=== PATIENT | female | born 1985 | race Caucasian/White ===

== ENCOUNTER 2019-08-16 17:05 | Outpatient (CLI) | payer MEDICAID, OTHER ==
[~2019-08-16] VITALS: Ht 167.7 cm; Wt 65.8 kg
--- NOTE | 2019-08-16 17:05 | NUR ---
KENISHA CURRAN presented to unit via ambulation from ED, accompanied by s/o, with c/o CONTRACTIONS. KENISHA CURRAN weighed, gowned, voided, and to bed. EFHM and TOCO applied, VS taken. KENISHA CURRAN oriented to bed controls, call light, TV, heat, and A/C controls.
[2019-08-16] MEDS ORDERED: TERBUTALINE INJ 1 MG/ML (BRETHINE) AMP ONE (18:10)
[2019-08-16] MEDS ORDERED: TERBUTALINE INJ 1 MG/ML (BRETHINE) AMP SC ONE (18:30)
--- NOTE | 2019-08-16 19:20 | NUR ---
called with update. Discharge order received.
[2019-08-16] MEDS ORDERED: AZIT500T2 PO (19:34)
--- NOTE | 2019-08-16 19:40 | NUR ---
Discharge instructions verbalized with pt. pt verbalized understanding. pt discharged home with labor precautions.
--- NOTE | 2019-08-19 09:01 | Physician Query-Final Dx ---
JAMAAL WARE 08/19/19 0901: Clinic Account Progress/Dx Physician Query: Please give diagnosis Please include # weeks of gestation Date of Service Aug 16, 2019 at 17:05 OTILIO MIRANDA DO 08/20/19 0655: Clinic Account Progress/Dx DIAGNOSIS: Diagnosis Intrauterine at 34 weeks 2. Threatened Labor 3. Pelvic Pain 4. UTI JAMAAL WARE Aug 19, 2019 09:01 OTILIO MIRANDA DO Aug 20, 2019 06:55
== END 2019-08-16 19:40 | disposition home or self-care (01) ==
LOC: WSo 17:05 → LDRP 17:05 → WSo 19:40
PROVIDERS: ATTEND Obstetrics & Gynecology
DX: O60.03 Preterm labor without delivery, third trimester (principal); O23.43 Unspecified infection of urinary tract in pregnancy, third trimester; Z3A.34 34 weeks gestation of pregnancy
CPT/HCPCS: 96372; 99213

== ENCOUNTER 2019-09-16 11:28 | Outpatient (CLI) | payer MEDICAID ==
[~2019-09-16] VITALS: Ht 167.7 cm; Wt 67.1 kg
--- NOTE | 2019-09-16 11:20 | NUR ---
KENISHA CURRAN presented to unit via ambulation from home, accompanied by mother and toddler, with c/o BACK PAIN,CONTRACTIONS. KENISHA CURRAN weighed, gowned, voided, and to bed. EFHM and TOCO applied, VS taken. KENISHA CURRAN oriented to bed controls, call light, TV, heat, and A/C controls.
[~2019-09-16 11:28] MED LIST: AZIT500T2 PO
[2019-09-16 11:51] LABS: BILIRUBIN,URINE NEGATIVE (NEGATIVE); CLARITY,URINE CLEAR; COLOR,URINE YELLOW; GLUCOSE, URINE (UA) NEGATIVE (NEGATIVE); KETONES,URINE NEGATIVE (NEGATIVE); LEUKOCYTE ESTERASE ,URINE NEGATIVE (NEGATIVE); NITRITE,URINE NEGATIVE (NEGATIVE); PH,URINE 7 (5-9); PROTEIN,URINE NEGATIVE (NEGATIVE)
[2019-09-16 11:56] VITALS: BP 113/65
[2019-09-16 12:02] LABS: BACTERIA,URINE NEGATIVE /HPF; WBC,URINE RARE /HPF
--- NOTE | 2019-09-16 13:05 | NUR ---
dr mccormack notified of patient status and c/o, fhr pattern contraction pattern, and cervical exam. new orders received.
--- NOTE | 2019-09-16 13:25 | NUR ---
sve by this Rn no leaking or bleeding. no change from previous exam.
--- NOTE | 2019-09-16 13:30 | NUR ---
ambulated to home self care with mother and toddler. with precautions to return with any changes. d/c instructions in hand.
--- NOTE | 2019-09-17 08:30 | Physician Query-Final Dx ---
JAMAAL WARE 09/17/19 0830: Clinic Account Progress/Dx Physician Query: Please give diagnosis Please include # weeks gestation Date of Service Sep 16, 2019 at 11:28 OTILIO MIRANDA DO 09/30/19 0720: Clinic Account Progress/Dx Physician Query: Please give diagnosis (Intrauterine at 38 weeks 2. Contractions 3. Back Pain) Date of Service September 16, 2019 DIAGNOSIS: Diagnosis Intrauterine at 38 weeks 2. Contractions 3. Back Pain JAMAAL WARE Sep 17, 2019 08:30 OTILIO CORDOVA DO Sep 30, 2019 07:20 POS
== END 2019-09-16 13:30 ==
LOC: WSo 11:28 → LDRP 11:29 → WSo 13:30
PROVIDERS: ATTEND Obstetrics & Gynecology
DX: O62.9 Abnormality of forces of labor, unspecified (principal); O26.893 Other specified pregnancy related conditions, third trimester; M54.9 Dorsalgia, unspecified; Z3A.38 38 weeks gestation of pregnancy
CPT/HCPCS: 81000; 87088; 99213

== ENCOUNTER 2019-09-18 05:33 | Outpatient (CLI) | payer MEDICAID ==
[~2019-09-18] VITALS: Ht 167 cm; Wt 65.9 kg
== END 2019-09-18 15:35 | disposition home or self-care (01) ==
LOC: PREOP 05:33
PROVIDERS: ATTEND Obstetrics & Gynecology
DX: Z01.818 Encounter for other preprocedural examination (principal)

== ENCOUNTER 2019-09-23 05:54 | Inpatient (IN) | payer MEDICAID ==
[~2019-09-23] VITALS: Ht 167 cm; Wt 64.0 kg
[2019-09-23] VITALS (11 sets, daily range): BP systolic 94–123; BP diastolic 58–82
[~2019-09-23 05:54] MED LIST changes: +CITRIC ACID/SOB CIT (BICITRA) 30 ML UDC ONE; +FAMOTIDINE 20MG/2ML IV (PEPCID) ONE; +LACTATED RINGERS 1,000 ML IV ONE; +METOCLOPRAMIDE INJ 10 MG/2 ML (REGLAN) ONE
--- NOTE | 2019-09-23 06:00 | NUR ---
KENISHA CURRAN presented to unit via AMBULATORY from ED, accompanied by FAMILY, with c/o PREVIOUS C/S . KENISHA CURRAN weighed, gowned, voided, and to bed. EFHM and TOCO applied, VS taken. KENISHA CURRAN oriented to bed controls, call light, TV, heat, and A/C controls.
[2019-09-23] MEDS ORDERED: LACTATED RINGERS 1,000 ML IV SCH (06:02)
[2019-09-23] MEDS ORDERED: FAMOTIDINE 20MG/2ML IV (PEPCID) IV ONE (06:15)
[2019-09-23] MEDS ORDERED: METOCLOPRAMIDE INJ 10 MG/2 ML (REGLAN) IV ONE (06:15)
[2019-09-23] MEDS ORDERED: CITRIC ACID/SOB CIT (BICITRA) 30 ML UDC PO ONE (06:15)
[2019-09-23] MEDS ORDERED: ceFAZolin 2 GM IV Premixed 50 ML IV ONE (06:15)
[2019-09-23] MEDS: LACTATED RINGERS 1,000 ML IV SCH ×3 (06:26→07:47)
[2019-09-23 06:31] LABS: BASOPHILS % (AUTO) 0 % (0-10); EOSINOPHILS # (AUTO) 0.1 10^3/uL (0.0-0.3); EOSINOPHILS % (AUTO) 1 % (0-10); HEMATOCRIT 38 % (35-52); LYMPHOCYTES # (AUTO) 1.6 X 10^3 (1.0-4.0); LYMPHOCYTES % (AUTO) 16 % (12-44); MEAN CORPUSCULAR HEMOGLOBIN 29 PG (25-34); MEAN CORPUSCULAR HGB CONC 34 G/DL (32-36); MEAN CORPUSCULAR VOLUME 85 FL (80-99); MEAN PLATELET VOLUME 11.3 FL (7.4-10.4); MONOCYTES # (AUTO) 0.9 X 10^3 (0.0-1.0); MONOCYTES % (AUTO) 9 % (0-12); NEUTROPHILS # (AUTO) 7.5 X 10^3 (1.8-7.8); NEUTROPHILS % (AUTO) 75 % (42-75); PLATELET COUNT 144 10^3/uL (130-400); RED CELL DISTRIBUTION WIDTH 14.6 % (10.0-14.5)
--- NOTE | 2019-09-23 06:56 | History & Physical-OB ---
OB - Chief Complaint & HPI Date/Time Date of Admission: Date of Admission: Sep 23, 2019 at 05:54 Date seen by a Provider: Sep 23, 2019 Time Seen by a Provider: 06:45 Chief Complaint/History OB-Reason for Admission/Chief: Section Expected Date of Delivery: Sep 29, 2019 Gestational Age in Weeks: 39 Gestational Age in Days: 1 Indication for : desires repeat Admission Nurse Assessment Rev: Yes Allergies and Home Medications Allergies Coded Allergies: latex (Verified Allergy, Mild, RASH/SWELLING, 09/18/19) morphine (Verified Allergy, Mild, RASH, 09/18/19) Home Medications No Active Prescriptions or Reported Meds Patient Home Medication List Home Medication List Reviewed: Yes OB - History Hx of Present Care: Yes Ultrasounds: Normal mid trimester US Obstetrical Complications: None Medical Complications: Cardiovascular Delivery History Adverse Rxn to Tranfusion: No (N/A) Patient Past Medical History See chart Social History/Family History HIV/AIDS: No Recent Infectious Disease Expo: No Sexually Transmitted Disease: No Alcohol Use: Denies Use Recreational Drug Use: No 2nd Hand Smoke Exposure: Yes OB - Admission Exam Physical Exam Vitals: Vital Signs 09/23/19 06:26 Temp 36.4 Pulse 82 Resp 18 Pulse Ox 99 O2 Delivery Room Air HEENT: NCAT Heart: Rhythm Normal Lungs: Clear Abdomen: Gravid Extremities: Normal Reflexes: Normal Cervical Dilatation: other (Deferred) Heart Rate: 130's Accelerations: Accelerations Present Decelerations: No Decelerations Short Term Variability: Present Crosscutter Rolled Glass Variability: Average (6-25) Contractions on Admission: 6-10 Minutes Apart Intensity: Mild Labs Laboratory Tests Test 09/23/19 06:20 Range/Units White Blood Count 10.0 4.3-11.0 10^3/uL Red Blood Count 4.50 4.35-5.85 10^6/uL Hemoglobin 13.0 11.5-16.0 G/DL Hematocrit 38 35-52 % Mean Corpuscular Volume 85 80-99 FL Mean Corpuscular Hemoglobin 29 25-34 PG Mean Corpuscular Hemoglobin Concent 34 32-36 G/DL Red Cell Distribution Width 14.6 H 10.0-14.5 % Platelet Count 144 130-400 10^3/uL Mean Platelet Volume 11.3 H 7.4-10.4 FL Neutrophils (%) (Auto) 75 42-75 % Lymphocytes (%) (Auto) 16 12-44 % Monocytes (%) (Auto) 9 0-12 % Eosinophils (%) (Auto) 1 0-10 % Basophils (%) (Auto) 0 0-10 % Neutrophils # (Auto) 7.5 1.8-7.8 X 10^3 Lymphocytes # (Auto) 1.6 1.0-4.0 X 10^3 Monocytes # (Auto) 0.9 0.0-1.0 X 10^3 Eosinophils # (Auto) 0.1 0.0-0.3 10^3/uL Basophils # (Auto) 0.0 0.0-0.1 10^3/uL OB - Assessment/Plan/Diagnosis Assessment Assessment: section Admission Dx Intrauterine at 39 1/7 weeks 2. Previous Admission Status: Inpatient Order (span 2 midnights) Reason for Inpatient Admission: Intrauterine at 39 1/7 2. Previous Plan Plan: Section OTILIO MIRANDA DO Sep 23, 2019 06:56
[2019-09-23] MEDS ORDERED: OXYTOCIN/NORMAL SALINE 1,000 ML IV ONE (07:03)
[2019-09-23] MEDS ORDERED: fentaNYL INJECTION 100 MCG/2 ML AMP ONE (07:04)
[2019-09-23] MEDS ORDERED: PHENYLEPHRINE 100 MCG/ML 10 ML (ANESTHESIA) SYR ONE (07:22)
[2019-09-23] MEDS ORDERED: BUPIVACAINE 0.5% 30 ML (SENSORCAINE) VIAL ONE (07:43)
[2019-09-23] MEDS ORDERED: OXYTOCIN/NORMAL SALINE 500 ML IV SCH (08:46)
[2019-09-23] MEDS ORDERED: TETANUS,DIPTH,PERTUSS P/F (BOOSTRIX) 0.5 ML VIAL IM SCH (09:00)
[2019-09-23] MEDS ORDERED: MEASLES,MUMPS,RUBELLA 1 EA INJ SC SCH (09:00)
[2019-09-23] MEDS ORDERED: ONDANSETRON 4 MG/2 ML (SDV) Z0FRAN IVP PRN (09:00)
--- NOTE | 2019-09-23 09:07 | Operative Report ---
Operative Report Date of Procedure/Surgery Sep 23, 2019 Surgeon (s) OTILIO MIRANDA DO Beater Tender (s): None Post-Operative Diagnosis Intrauterine at 39 1/7 weeks 2. Previous Procedure Performed Repeat Description of Procedure Anesthesia Type: Spinal Estimated blood loss (mL): 500 ml Urinary Output 75 ml IV fluids 1200 ml Specimen(s) collected/removed Placenta and old scar Description of the Procedure Ms. Bai was taken to the Operating Room with IV fluids running. Once in the OR Spinal Anesthesia was administered without difficulty. She was then place in the supine position with a leftward tilt. A Elder Catheter was inserted. She was then prepped and draped in the normal sterile fashion. Anesthesia was tested and found to be adequate. An elliptical incision was made over her previous incision with the old incision being removed. The incision was then carried down to the underling layer of the fascia. The fascia was nicked in the midline and extended bilaterally. The fascia was elevated and rectus muscle dissected off. The rectus muscle was in the midline. The peritoneum was identified, entered sharply, the incision was extended superiorly and inferiorly with good visualization of the bladder. The vesicouterine peritoneum was entered sharply, extended bilaterally. The bladder flap was created digitally and the bladder blade was inserted. It should be noted that the lower uterine segment was very thin--so thin I could see through it. A transverse icisin was made on the lower uterine segment. The membranes were ruptured (clear fluid). The vertex was delivered atraumatically. Orally and nasally suctioned immediately. A viable female infant was delivered without complications. The umbilical cord was doubly clamped and cut. The was handed off to the waiting Pediatric Caregiver where NRP protocol was followed. Cord blood was obtained. The placenta was manually extracted. The uterus was exteriorized, cleared of clots and debris. The uterus was repaired with 0- Vicryl in a running locked fashion. A second suture of the same type was placed as an imbricating layer. The vesicouterine peritoneum was approximated with 3-0 Vicryl in a running fashion. The uterus was returned to the pelvic cavity. The gutters were cleared of all clots and debris. The parietal peritoneum was closed with 3-0 Vicryl in a running fashion. The fascia was closed with 0-Vicry l. The subcutaneous tissues were approximated with 3-0 Plain Gut. The skin was closed with 4-0 Vicryl in a subcuticular manner. Excellent alevism of normal skin planes. Sponge, instrument, and needle counts were correct x 3. She was taken to the Recovery Room in good and stable condition. Findings of the Procedure A viable female in the cephalic presentation Allergies and Home Medications Allergies Coded Allergies: latex (Verified Allergy, Mild, RASH/SWELLING, 09/18/19) morphine (Verified Allergy, Mild, RASH, 09/18/19) Home Medications No Active Prescriptions or Reported Meds Patient Home Medication List Home Medication List Reviewed: Yes OTILIO MIRANDA DO Sep 23, 2019 09:07
--- NOTE | 2019-09-23 09:20 | NUR ---
TRANSFERRED TO PP ROOM 307 VIA PT BED FROM OB PACU ACC BY ONEAL GARCIA AFTER A REPEAT SECTION BY DR. MIRANDA. BED TO LOW POSITION. SIDE RAILS UP X4. ORIENTED TO SURROUNDINGS. CALF SCDS ON BILATERALLY. PT RECEIVED BY Adrien MOTTA RN. S.O. PUSHING INFANT IN CRIB. FAMILY IN ROOM. FF U/1. VAG FLOW MOD RUBRA. IV PATENT SITE CLEAR. ORIENTED TO CALL LIGHT OPERATION, INFORMATION PAPERS, AND SURROUNDINGS.
--- NOTE | 2019-09-23 10:00 | NUR ---
IV PLACED ON PUMP WITH NEW TUBING.
--- NOTE | 2019-09-23 10:56 | NUR ---
OXYIR 5 MG P.O. FOR C/O INCISIONAL PAIN. ICE PACK TO ABDOMEN. FAMILY AT BEDSIDE.TAKING FLUIDS WELL. GONZALEZ PATENT TO DD WITH CLEAR YELLOW URINE. CARING FOR .
[2019-09-23] MEDS: METOCLOPRAMIDE 10 MG (REGLAN) TAB PO SCH ×3 (12:52→23:52)
[2019-09-23] MEDS: ACETAMINOPHEN 500 MG TAB (TYLENOL) PO SCH ×3 (12:53→23:31)
[2019-09-23] MEDS: fentaNYL INJECTION 100 MCG/2 ML AMP IVP PRN ×2 (12:53→18:01)
--- NOTE | 2019-09-23 12:53 | NUR ---
FENTANYL 50 MCG IVP FOR C/O INCISIONAL PAIN. TEARFUL. HOLDING . .
--- NOTE | 2019-09-23 14:00 | NUR ---
HOLDING . FAMILY AT BEDSIDE. RATES PAIN A 5 AT THIS TIME.
--- NOTE | 2019-09-23 14:40 | NUR ---
PT C/O NEED TO HAVE A BM. ASSISTED TO THE BATHROOM. LARGE BM. STATES THE CATHETER IS LEAKING AROUND ITSELF. CONFIRMED.
--- NOTE | 2019-09-23 14:45 | NUR ---
DR. MIRANDA NOTIFIED OF PT C/O WANTING GONZALEZ D/C'ED, URINE GOING AROUND BULB, AND LARGE BM. ORDERS RECEIVED.
--- NOTE | 2019-09-23 14:50 | NUR ---
GONZALEZ D/C'ED WITH 400 CC URINE IN THE BAG. BACK TO BED WITH ASSISTANCE. ICE PACK TO ABDOMEN. FAMILY AT BEDSIDE. REGULAR DIET ORDERED FOR PT.
--- NOTE | 2019-09-23 15:00 | NUR ---
OXYIR 5 MG P.O. FOR C/O INCISIONAL PAIN. PREPARING TO TRY TO FEED INFANT. REGULAR DIET ORDERED. FAMILY AT BEDSIDE. FF U/1. VAG FLOW LT RUBRA.
--- NOTE | 2019-09-23 16:15 | NUR ---
Up to BR voided 600ml of clear yellow urine. Pt ambulated well. Back to bed - SCD's reapplied.
[2019-09-23] MEDS ORDERED: IBUPROFEN 800 MG (MOTRIN) TAB PO ONE (17:35)
[2019-09-23] MEDS: IBUPROFEN 800 MG (MOTRIN) TAB PO SCH (18:00)
--- NOTE | 2019-09-23 18:01 | NUR ---
FENTANYL 50 MCG IVP FOR C/O INCISIONAL PAIN. PT HAS VOIDED WELL. AMBULATES WITHOUT DIFFICULTY WITH MINIMAL ASSISTANCE.
[2019-09-23] MEDS: DOCUSATE SODIUM 100 MG (COLACE) CAP PO SCH (19:56)
[2019-09-23] MEDS ORDERED: ZOLPIDEM 5 MG (AMBIEN) TAB PO SCH (21:00)
[2019-09-23] MEDS: CATHETER FLUSH 10 ML SYR IV SCH (21:15)
--- NOTE | 2019-09-23 22:00 | NUR ---
pt holding infant in arms at this time. denies needs.
--- NOTE | 2019-09-24 02:00 | NUR ---
pt sleeping at this time.
[2019-09-24] MEDS: IBUPROFEN 800 MG (MOTRIN) TAB PO SCH ×2 (02:45→12:03)
[2019-09-24 04:22] VITALS: BP 111/70
[2019-09-24] MEDS ORDERED: MILK OF MAGNESIA 400 MG/5 ML 30 ML UDC PO ONE (05:00)
[2019-09-24] MEDS ORDERED: BISACODYL 10 MG SUPP (DULCOLAX) PR ONE (05:00)
[2019-09-24] MEDS: ACETAMINOPHEN 500 MG TAB (TYLENOL) PO SCH ×2 (06:06→12:02)
[2019-09-24] MEDS: METOCLOPRAMIDE 10 MG (REGLAN) TAB PO SCH ×2 (06:06→12:02)
[2019-09-24] MEDS: CATHETER FLUSH 10 ML SYR IV SCH (06:08)
--- NOTE | 2019-09-24 06:11 | NUR ---
dr. mccormack here to round on pt now.
[2019-09-24 06:16] LABS: BASOPHILS % (AUTO) 0 % (0-10); EOSINOPHILS # (AUTO) 0.1 10^3/uL (0.0-0.3); EOSINOPHILS % (AUTO) 1 % (0-10); HEMATOCRIT 31 % (35-52); HEMOGLOBIN 10.4 G/DL (11.5-16.0); LYMPHOCYTES # (AUTO) 2.1 X 10^3 (1.0-4.0); LYMPHOCYTES % (AUTO) 22 % (12-44); MEAN CORPUSCULAR HEMOGLOBIN 29 PG (25-34); MEAN CORPUSCULAR HGB CONC 34 G/DL (32-36); MEAN CORPUSCULAR VOLUME 86 FL (80-99); MEAN PLATELET VOLUME 11.4 FL (7.4-10.4); MONOCYTES # (AUTO) 0.9 X 10^3 (0.0-1.0); MONOCYTES % (AUTO) 9 % (0-12); NEUTROPHILS # (AUTO) 6.4 X 10^3 (1.8-7.8); NEUTROPHILS % (AUTO) 68 % (42-75); PLATELET COUNT 110 10^3/uL (130-400); RED CELL DISTRIBUTION WIDTH 14.2 % (10.0-14.5); WHITE BLOOD COUNT 9.4 10^3/uL (4.3-11.0)
[2019-09-24] MEDS ORDERED: DOCU100C37 PO (06:38)
[2019-09-24] MEDS ORDERED: IBUP-1780 PO (06:38)
[2019-09-24] MEDS ORDERED: ACET-77 PO (06:38)
[2019-09-24] MEDS ORDERED: OXC5T PO (06:38)
--- NOTE | 2019-09-24 06:45 | Discharge Summary ---
Diagnosis/Chief Complaint Date of Admission Sep 23, 2019 at 05:54 Date of Discharge September 24, 2019 Discharge Date: Sep 24, 2019 Discharge Time: 09:00 Admission Diagnosis Admission Diagnosis Intrauterine at 39 1/7 weeks 2. Previous Discharge Diagnosis Intrauterine at 39 1/7 weeks--delivered 2. Previous Reason Hospital Visit Scheduled Repeat Discharge Summary Hospital Course Hospital Course Ms. Bai was admitted for Repeat . The procedure was performed without complications. A healthy viable female was delivered without problems. On the day of surgery, she was given IV pain medications and other comfort measures were instituted. Her day of surgery course was unremarkable. Postoperative Day #1 found Ms. Tinajero moving her bowels, voiding freely, ambulating without assist, tolerating a Regular Diet, and controlling her pain with oral pain medications We will discharge her to home with instructions,, prescriptions and a follow up appointment. Labs Laboratory Tests 09/23/19 06:20: Red Cell Distribution Width 14.6H, Mean Platelet Volume 11.3H 09/24/19 05:45: Mean Platelet Volume 11.4H, Red Blood Count 3.60L, Hemoglobin 10.4L, Hematocrit 31L, Platelet Count 110L Procedures Repeat . Discharge Physical Examination Allergies: Coded Allergies: latex (Verified Allergy, Mild, RASH/SWELLING, 09/18/19) morphine (Verified Allergy, Mild, RASH, pt has received Oxycodone previously w/o issue, 09/23/19) Per Hayley Pt has received Oxycodone previously Vitals & I&Os Vital Signs Date Time Temp Pulse Resp B/P (MAP) Pulse Ox O2 Delivery O2 Flow Rate FiO2 09/24/19 04:22 37.0 69 16 111/70 (84) Room Air 09/23/19 23:31 96 General Appearance: Alert, Oriented X3, Cooperative HEENT: Atraumatic Respiratory: Clear to Auscultation, Normal Air Movement Cardiovascular: Regular Rate, No Murmurs Abdominal: Normal Bowel Sounds, No Tenderness Extremities: No Clubbing, No Cyanosis, No Edema Skin: No Rashes Neuro: Normal Gait, Normal Speech Psych/Mental Status: Mental Status NL Discharge Home Medications Reviewed and agree with Discharge Medication list on patient's Discharge Instruction sheet Instructions to Patient/Family Please see electronic discharge instructions given to patient. Clinical Quality Measures DVT/VTE Risk/Contraindication: Risk Factor Score Per Nursin RFS Level Per Nursing on Admit: 3=High OTILIO MIRANDA DO Sep 24, 2019 06:45 POS
--- NOTE | 2019-09-24 07:22 | Anesthesia-Regional Post-Op ---
Regional Patient Condition Mental Status: Alert, Oriented x3 Circulation: Same as Pre-Op Headache: Absent Sensation: Full Recovery Motor Block: Absent Post Op Complications Complications None Follow Up Care/Instructions Patient Instructions None needed. Anesthesia/Patient Condition Patient is doing well, no complaints, stable vital signs, no apparent adverse anesthesia problems. No complications reported per nursing. IKE CLAYTON CRNA Sep 24, 2019 07:22 POS
[2019-09-24] MEDS: DOCUSATE SODIUM 100 MG (COLACE) CAP PO SCH (07:40)
[2019-09-24 07:41] VITALS: BP 101/59
--- NOTE | 2019-09-24 07:51 | NUR ---
PT SITTING UP IN BED, EATING BREAKFAST. LYING BESIDE HER. COLACE GIVEN PO; SEE EMAR FOR FURTHER. VS OBTAINED. INITIAL SHIFT ASSESSMENT COMPLETED; SEE INTERVENTION FOR FURTHER. PT REFUSES THE TDAP AND MMR VACCINES. PLAN TO DISCHARGE PT TODAY, PT VOICES "ANYTIME". S/O RESTING AT THE BEDSIDE.
--- NOTE | 2019-09-24 08:20 | Anesthesia-Regional Post-Op ---
Regional Patient Condition Mental Status: Alert, Oriented x3 Circulation: Same as Pre-Op Headache: Absent Sensation: Full Recovery Motor Block: Absent Post Op Complications Complications None Follow Up Care/Instructions Patient Instructions None needed. Anesthesia/Patient Condition Patient is doing well, no complaints, stable vital signs, no apparent adverse anesthesia problems. No complications reported per nursing. BRENDA BURGER CRNA Sep 24, 2019 08:20 POS
--- NOTE | 2019-09-24 09:20 | NUR ---
DISCHARGE PAPERS PROVIDED AND REVIEWED WITH PT, PT VERBALIZES UNDERSTANDING AND DENIES ANY QUESTIONS AT THIS TIME. PAPER SIGNED. RX'S AND FOLLOW UP APPOINTMENT CARD ALSO PROVIDED AT THIS TIME.
--- NOTE | 2019-09-24 10:18 | NUR ---
CM/SS report made to [facility] (intake # [id number]) as there are concerns of drug use history and lack of family support. Message with call back information was also left with Meredith (network control operators supervisor for [facility], ext [phone]).
--- NOTE | 2019-09-24 10:33 | NUR ---
PT CALLED OUT, ASKING TO LEAVE UNIT.
[2019-09-24 12:01] VITALS: BP 112/68
--- NOTE | 2019-09-24 13:50 | NUR ---
PT DISCHARGED FROM -[facility] TO PERSONAL AUTO VIA W/C IN STABLE CONDITION ACC BY THIS RN, S/O AND INFANT.
[2019-09-24] MEDS ORDERED: IBUPROFEN 800 MG (MOTRIN) TAB PO SCH (15:00)
== END 2019-09-24 13:50 | disposition home or self-care (01) | DRG 788 ==
LOC: LDRP 05:54
PROVIDERS: ADMIT Obstetrics & Gynecology; ATTEND Obstetrics & Gynecology
PROC: 10D00Z1 Extraction of Products of Conception, Low, Open Approach (ICD-10-PCS; principal; 2019-09-23 07:12)
DX: O34.211 Maternal care for low transverse scar from previous cesarean delivery (principal); Z3A.39 39 weeks gestation of pregnancy; Z37.0 Single live birth; Z91.040 Latex allergy status; Z88.5 Allergy status to narcotic agent
CPT/HCPCS: 36415; 85025; 86850; 86900; 86901; 94664

== ENCOUNTER 2021-11-22 16:30 | Emergency (ER) | payer MEDICAID ==
[~2021-11-22] VITALS: Ht 167.7 cm; Wt 59.0 kg
[~2021-11-22 16:30] MED LIST changes: +ACET-78 PO; -CITRIC ACID/SOB CIT (BICITRA) 30 ML UDC ONE; +DOCU100C37 PO; -FAMOTIDINE 20MG/2ML IV (PEPCID) ONE; +IBUP-1780 PO; -LACTATED RINGERS 1,000 ML IV ONE; -METOCLOPRAMIDE INJ 10 MG/2 ML (REGLAN) ONE; +OXC5T PO
--- OUTSIDE RECORDS SUMMARY | 2021-11-22 16:35 | XMS REPORT | Clinical Summary ---
Author Author [facility] Organization [facility] Address Unknown Phone Unavailable Care Team Providers Care Production Analyst Name Role Phone PCP Unavailable Allergies Not on File Medications Not on file Active Problems Not on file Social History Date Tobacco Use Types Packs/Day Years Used Never Assessed Sex Assigned at Date Recorded Not on file Last Filed Vital Signs Not on file Plan of Treatment Not on file Results Not on filefrom Last 3 Months
[2021-11-22] MEDS ORDERED: FAMOTIDINE 20MG/2ML IV (PEPCID) IV STA (16:38)
--- NOTE | 2021-11-22 16:38 | ED Chest Pain ---
General Stated Complaint: CP,TROUBLE BREATHING,CONFUSION History of Present Illness Date Seen by Provider: Nov 22, 2021 Time Seen by Provider: 16:32 Initial Comments 36-year-old female presents with epigastric/substernal chest pain that started around 830 this morning. She reports it comes and goes. Nothing seems to make it better or worse. Patient reports that when the pain there she feels like she got a bit of trouble taking a deep breath. No fevers, chills, cough, nausea or vomiting. Allergies and Home Medications Allergies Coded Allergies: latex (Verified Allergy, Mild, RASH/SWELLING, 09/18/19) morphine (Verified Allergy, Mild, RASH, pt has received Oxycodone previously w/o issue, 09/23/19) Per Hayley Pt has received Oxycodone previously Patient Home Medication List Home Medication List Reviewed: Yes Acetaminophen (Acetaminophen) 500 Mg Tablet, 1,000 MG PO Q6HR Prescribed by: OTILIO MIRANDA on 09/24/19637 Docusate Sodium (Docusate Sodium) 100 Mg Capsule, 100 MG PO BID Prescribed by: OTILIO MIRANDA on 09/24/19637 Ibuprofen (Ibuprofen) 800 Mg Tablet, 800 MG PO Q8H Prescribed by: OTILIO MIRANDA on 09/24/19637 Oxycodone Hcl (Oxycodone IR) 5 Mg Tab, 5 MG PO Q4H PRN for To achieve TAG Prescribed by: OTILIO MIRANDA on 09/24/19637 Review of Systems Review of Systems Constitutional: No chills, No diaphoresis, No fever Respiratory: See HPI; Denies Cough, Denies Shortness of Air Cardiovascular: Denies Edema, Denies Syncope Gastrointestinal: Abdominal Pain (Epigastric); Denies Nausea, Denies Vomiting Genitourinary: No Symptoms Reported Musculoskeletal: no symptoms reported Skin: no symptoms reported Psychiatric/Neurological: No Symptoms Reported Endocrine: No Symptoms Reported Hematologic/Lymphatic: No Symptoms Reported Past Wwjndwi-Hgwrfe-Kjugkg Hx Seasonal Allergies Seasonal Allergies: No Past Medical History Surgeries: Yes (CS-4, HERNIA REPAIR CHILD) Respiratory: Yes (AFTER ) Pulmonary Embolism Currently Using CPAP: No Currently Using BIPAP: No Cardiac: No Neurological: Yes (POSS MINI-STROKE X2 (RELATED TO MIGRAINE)) Female Reproductive Disorders: Menstrual Problems Sexually Transmitted Disease: No HIV/AIDS: No Genitourinary: No Gastrointestinal: Yes Gastroesophageal Reflux Musculoskeletal: Yes (BULGING DISC) Chronic Back Pain Endocrine: No HEENT: Yes (GLASSES) Loss of Vision: Denies Hearing Impairment: Denies Cancer: No Psychosocial: No Integumentary: No Blood Disorders: No Adverse Reaction/Blood Tranf: No (N/A) Physical Exam Vital Signs Vital Signs - First Documented 11/22/21 16:34 Temp 36.8 Pulse 90 Resp 18 B/P (MAP) 147/74 (98) O2 Delivery Room Air Capillary Refill : Height, Weight, BMI Height: '" Weight: lbs. oz. kg; 22.94 BMI Method: General Appearance: No Apparent Distress, WD/WN Respiratory: Lungs Clear, Normal Breath Sounds Cardiovascular: Regular Rate, Rhythm, No Edema Gastrointestinal: Soft, Tenderness (Epigastric) Extremity: Normal Capillary Refill, Normal Inspection, Normal Range of Motion Neurologic/Psychiatric: Alert, Oriented x3, No Motor/Sensory Deficits, Normal Mood/Affect, oracle application consultant II-XII Norm as Tested Skin: Normal Color, Warm/Dry Progress/Results/Core Measures Results/Orders Lab Results Laboratory Tests Test 11/22/21 16:40 Range/Units White Blood Count 11.1 H 4.3-11.0 10^3/uL Red Blood Count 5.27 H 3.80-5.11 10^6/uL Hemoglobin 15.2 11.5-16.0 g/dL Hematocrit 44 35-52 % Mean Corpuscular Volume 84 80-99 fL Mean Corpuscular Hemoglobin 29 25-34 pg Mean Corpuscular Hemoglobin Concent 34 32-36 g/dL Red Cell Distribution Width 12.2 10.0-14.5 % Platelet Count 245 130-400 10^3/uL Mean Platelet Volume 9.9 9.0-12.2 fL Immature Granulocyte % (Auto) 0 % Neutrophils (%) (Auto) 64 42-75 % Lymphocytes (%) (Auto) 30 12-44 % Monocytes (%) (Auto) 5 0-12 % Eosinophils (%) (Auto) 1 0-10 % Basophils (%) (Auto) 0 0-10 % Neutrophils # (Auto) 7.1 1.8-7.8 X 10^3 Lymphocytes # (Auto) 3.4 1.0-4.0 X 10^3 Monocytes # (Auto) 0.5 0.0-1.0 X 10^3 Eosinophils # (Auto) 0.1 0.0-0.3 10^3/uL Basophils # (Auto) 0.0 0.0-0.1 10^3/uL Immature Granulocyte # (Auto) 0.0 0.0-0.1 10^3/uL Prothrombin Time 12.6 12.2-14.7 SEC INR Comment 0.9 0.8-1.4 Activated Partial Thromboplast Time 26 24-35 SEC D-Dimer 0.34 0.00-0.49 UG/ML Sodium Level 138 135-145 MMOL/L Potassium Level 3.6 3.6-5.0 MMOL/L Chloride Level 102 98-107 MMOL/L Carbon Dioxide Level 24 21-32 MMOL/L Anion Gap 12 5-14 MMOL/L Blood Urea Nitrogen 5 L 7-18 MG/DL Creatinine 0.68 0.60-1.30 MG/DL Estimat Glomerular Filtration Rate 97 BUN/Creatinine Ratio 7 Glucose Level 113 H 70-105 MG/DL Calcium Level 10.1 8.5-10.1 MG/DL Corrected Calcium 8.5-10.1 MG/DL Magnesium Level 2.1 1.6-2.4 MG/DL Total Bilirubin 0.4 0.1-1.0 MG/DL Aspartate Amino Transf (AST/SGOT) 20 5-34 U/L Alanine Aminotransferase (ALT/SGPT) 23 0-55 U/L Alkaline Phosphatase 73 40-136 U/L Myoglobin 22.8 10.0-92.0 NG/ML Troponin I < 0.30 <0.30 NG/ML Total Protein 7.9 6.4-8.2 GM/DL Albumin 4.8 H 3.2-4.5 GM/DL Lipase 52 8-78 U/L My Orders Orders - DAWN,MEY L DO Cbc With Automated Diff (11/22/21 16:38) Magnesium (11/22/21 16:38) Chest 1 View Ap/Pa Only (11/22/21 16:38) Ekg Tracing (11/22/21 16:38) Comprehensive Metabolic Panel (11/22/21 16:38) Myoglobin Serum (11/22/21 16:38) Protime With Inr (11/22/21 16:38) Partial Thromboplastin Time (11/22/21 16:38) Monitor-Rhythm Ecg Trace Only (11/22/21 16:38) Lipid Panel (11/23/21 06:00) Aspirin Chewable Tablet (Baby Aspirin Ch (11/22/21 16:45) Ed Iv/Invasive Line Start (11/22/21 16:38) Lipase (11/22/21 16:38) Fibrin Degradation Products (11/22/21 16:38) Troponin I Fs (11/22/21 16:38) Famotidine Injection (Pepcid Injection) (11/22/21 16:38) Lidocaine 2% Viscous 15 Ml (Xylocaine Vi (11/22/21 17:45) Antacid Suspension (Mylanta Suspension (11/22/21 17:45) Medications Given in ED Current Medications Medications Dose Ordered Sig/Waylon Route Start Time Stop Time Status Last Admin Dose Admin Al Hydrox/Mg Hydrox/Simethicone 30 ml ONCE ONCE PO 11/22/21 17:45 11/22/21 17:46 DC 11/22/21 17:49 30 ML Aspirin 324 mg ONCE ONCE PO 11/22/21 16:45 11/22/21 16:46 DC 11/22/21 16:43 324 MG Lidocaine HCl 15 ml ONCE ONCE PO 11/22/21 17:45 11/22/21 17:46 DC 11/22/21 17:49 15 ML Vital Signs/I&O 11/22/21 16:34 Temp 36.8 Pulse 90 Resp 18 B/P (MAP) 147/74 (98) O2 Delivery Room Air Progress Progress Note : Progress Note Patient with negative troponin, EKG, chest x-ray and D-dimer. Her symptoms are much more consistent with gastritis or reflux and cardiac or respiratory cause of her discomfort. Discussed findings with patient. Recommend she try some Pepcid or similar medication twice daily if no improvement about a week she should follow-up with her primary care provider. She can return to the ER as needed for worsening symptoms. Patient stable and discharged Initial ECG Impression Date: Nov 22, 2021 Initial ECG Impression Time: 16:31 Initial ECG Rate: 89 Initial ECG Rhythm: Normal Sinus Initial ECG Impression: Nonspecific Changes Comment no acute changes Diagnostic Imaging Diagonstic Imaging: Xray Plain Films/CT/US/NM/MRI: chest Comments Date of Exam:11/22/21 CHEST 1 VIEW AP/PA ONLY INDICATION: Chest pain. Frontal chest obtained at 0444 p.m. Heart and mediastinal silhouette are normal in appearance. The lungs are clear. There is no pneumothorax or pleural fluid. IMPRESSION: Negative chest. Reviewed: Reviewed by Me, Reviewed/Discussed Departure Impression Primary Impression: Epigastric discomfort Additional Impression: Gastritis Qualified Codes: K29.70 - Gastritis, unspecified, without bleeding Disposition: HOME, SELF-CARE Condition: Stable Departure-Patient Inst. Referrals: ELVIE AMBRIZ MD (PCP/Family) Primary Care Physician Patient Instructions: Acid Reflux and GERD in Adults (DC), Chest Pain That Is Not Caused by the Heart (DC), Gastritis ED Add. Discharge Instructions: Pepcid or similar medication twice daily as directed on package Follow-up with your primary care provider if symptoms has not resolved or continues to return over the next 4 to 5 days. Return to the ER with worsening of symptoms, worsening shortness of breath or any other concerns. MEY DAWN DO Nov 22, 2021 16:38
[2021-11-22] MEDS ORDERED: ASPIRIN 81 MG CHEW (CHILDREN'S ASA) PO ONE (16:45)
[2021-11-22 16:49] LABS: HEMATOCRIT 44 % (35-52); HEMOGLOBIN 15.2 g/dL (11.5-16.0); MEAN CORPUSCULAR HEMOGLOBIN 29 pg (25-34); MEAN CORPUSCULAR HGB CONC 34 g/dL (32-36); MEAN CORPUSCULAR VOLUME 84 fL (80-99); MEAN PLATELET VOLUME 9.9 fL (9.0-12.2); PLATELET COUNT 245 10^3/uL (130-400); WHITE BLOOD COUNT 11.1 10^3/uL (4.3-11.0)
[2021-11-22 16:50] LABS: BASOPHILS % (AUTO) 0 % (0-10); EOSINOPHILS # (AUTO) 0.1 10^3/uL (0.0-0.3); EOSINOPHILS % (AUTO) 1 % (0-10); LYMPHOCYTES # (AUTO) 3.4 X 10^3 (1.0-4.0); LYMPHOCYTES % (AUTO) 30 % (12-44); MONOCYTES # (AUTO) 0.5 X 10^3 (0.0-1.0); MONOCYTES % (AUTO) 5 % (0-12); NEUTROPHILS # (AUTO) 7.1 X 10^3 (1.8-7.8); NEUTROPHILS % (AUTO) 64 % (42-75)
--- NOTE | 2021-11-22 16:54 | Diagnostic Imaging Report ---
INDICATION: Chest pain. Frontal chest obtained at 0444 p.m. Heart and mediastinal silhouette are normal in appearance. The lungs are clear. There is no pneumothorax or pleural fluid. IMPRESSION: Negative chest. Dictated by: Dictated on workstation # [id number]
[2021-11-22 17:05] LABS: INR 0.9 (0.8-1.4); PROTHROMBIN TIME PATIENT 12.6 SEC (12.2-14.7)
[2021-11-22 17:12] LABS: ALANINE AMINOTRANSFERASE 23 U/L (0-55); ALKALINE PHOSPHATASE 73 U/L (40-136); BILIRUBIN,TOTAL 0.4 MG/DL (0.1-1.0); BUN/CREATININE RATIO 7; CALCIUM 10.1 MG/DL (8.5-10.1); CARBON DIOXIDE 24 MMOL/L (21-32); CHLORIDE 102 MMOL/L (98-107); CREATININE SERUM 0.68 MG/DL (0.60-1.30); GFR ESTIMATED 97; GLUCOSE 113 MG/DL (70-105); MAGNESIUM 2.1 MG/DL (1.6-2.4); POTASSIUM 3.6 MMOL/L (3.6-5.0); SODIUM 138 MMOL/L (135-145)
[2021-11-22 17:13] LABS: ALBUMIN 4.8 GM/DL (3.2-4.5); LIPASE 52 U/L (8-78); TOTAL PROTEIN 7.9 GM/DL (6.4-8.2)
[2021-11-22] MEDS ORDERED: ANTACID SUSP 30 ML UDC (MYLANTA) PO ONE (17:45)
[2021-11-22] MEDS ORDERED: LIDOCAINE 2% VISCOUS 15 ML UDC PO ONE (17:45)
[2021-11-22 18:25] VITALS: BP 136/74
== END 2021-11-22 18:25 | disposition home or self-care (01) ==
LOC: EDUNIT# 16:30 → ER FS 16:32
DX: K29.70 Gastritis, unspecified, without bleeding (principal); G89.29 Other chronic pain; M54.9 Dorsalgia, unspecified; Z79.891 Long term (current) use of opiate analgesic; Z91.040 Latex allergy status
CPT/HCPCS: 36415; 71045; 80053; 83690; 83735; 83874; 84484; 85025; 85379; 85610; 85730; 93005; 93041